=== PATIENT | male | born 1970 | race Caucasian/White ===

== ENCOUNTER 2021-05-05 13:31 | Outpatient (CLI) | payer BC ==
[~2021-05-05] VITALS: Ht 182.9 cm; Wt 108.0 kg
[2021-05-05] VITALS (10 sets, daily range): BP systolic 118–139; BP diastolic 75–86; PULSE 50–64; TEMP 99.1–99.5
[2021-05-05] MEDS ORDERED: COMPLETE MULTI1 TAB PO (14:38)
== END 2021-05-05 14:20 | disposition home or self-care (01) ==
LOC: EUO 13:31
DX: U07.1 COVID-19 (principal); E66.9 Obesity, unspecified
CPT/HCPCS: M0245